=== PATIENT | female | born 1965 ===

== ENCOUNTER → 2021-07-16 12:41 | Outpatient (CLI) | payer BC, SELFPAY ==
--- NOTE | ~2021-07-16 | US_ITS ---
EXAMINATION: US soft tissue head and neck DATE: 07/16/2021 13:01 INDICATION: Neck lump. TECHNIQUE: Multiple grayscale and Doppler ultrasound images of the neck were obtained. COMPARISON: None FINDINGS: There is a normal lymph node in the patient's area of concern in right posterior neck. IMPRESSION: 1. Normal lymph node in the patient's area of concern in right posterior neck. Reviewed, dictated and finalized at location B. [facility] [employer]
== END ==
PROVIDERS: PCP Hospitalist; Visit Provider Hospitalist
DX: R22.1 Localized swelling, mass and lump, neck (principal)
CPT/HCPCS: 76536